=== PATIENT | female | born 1960 | race Caucasian/White ===

== ENCOUNTER → 2024-04-28 13:50 | Outpatient (REF) | payer MEDICARE, SELFPAY | LOC: RAD 13:50 | PROVIDERS: ATTENDING PHYSICIAN Nurse Practitioner Adult Health | DX: R19.02 Left upper quadrant abdominal swelling, mass and lump (principal) | CPT/HCPCS: 74177; Q9967 ==

== ENCOUNTER → 2024-12-24 10:35 | Outpatient (REF) | payer MEDICARE, SELFPAY | LOC: RAD 10:35 | PROVIDERS: ATTENDING PHYSICIAN Nurse Practitioner Adult Health | DX: M85.89 Other specified disorders of bone density and structure, multiple sites (principal) | CPT/HCPCS: 77080 ==

== ENCOUNTER → 2025-01-05 09:57 | Outpatient (REF) | payer MEDICARE, SELFPAY | LOC: WDC 09:57 | PROVIDERS: ATTENDING PHYSICIAN Nurse Practitioner Adult Health | DX: N64.4 Mastodynia (principal); M51.16 Intervertebral disc disorders with radiculopathy, lumbar region | CPT/HCPCS: 72110; 76642; 77062; 77066 ==